=== PATIENT | male | born 1995 | race Native Hawaiian/Other Pacific Islander ===

== ENCOUNTER 2017-12-16 19:35 | Emergency (ER) | payer SELFPAY ==
[2017-12-16 19:36] VITALS: BP 133/99; PULSE 86; RESP 16; TEMP 36.9; O2SAT 99; BMI 31.3
--- NOTE | 2017-12-16 19:50 | ED.VISSUMM ---
- ER Visit Summary Date of Service: 12/16/17 Chief Complaint: painful rash left lower quadrant History of Present Illness: The patient is a 22 M who presents with painful red rash left lower quadrant near his pants/waistline. He denies fever, chills night sweats. He denies history of rheumatic fever, murmur, SBE, IV drug use to be immune suppressed. He denies any trauma. He denies prior history of cellulitis. He is not from this area. States he was driving through and saw there was a sign posted for hospital. Please read written note for complete detai. Physical Examination: Vital signs remarkable slight elevation blood pressure 133/99. He is not febrile. There is a 5 x 3 cm rash left lower quadrant is consistent with cellulitis. The rash is erythematous, warmth, indurated with no fluctuance lymphangitis or inguinal lymphadenopathy. Heart is regular without murmur, gallop or rub. S1 and S2 are normal. Lungs are clear to auscultation with good movement of air bilaterally. Test Results: None Emergency Department Course and Treatment: She patient states he has no insurance. He was prescribed cephalexin and trimethoprim sulfa double strength and prescription for both. Treatment Plan: Follow-up with in his area in 2 days for wound check. Disposition: Discharged home with appropriate home-going instructions Impression: Cellulitis left lower quadrant abdominal wall This note was generated with [employer] dictation software. It may contain incorrect words, spelling, and punctuation that were not noted in review of the chart prior to signing ED Disposition - Plan for ED Patient: Disposition: Home or Assisted Living Chief Complaint: Abscess Instructions: ED Infec Skin Cellulitis Prescriptions: Cephalexin [Keflex] 500 mg PO Q6 #30 cap Smz/Tmp Ds [Bactrim Ds] 1 tab PO BID #14 tab Referrals: Care Physician,No Primary [Primary Care Provider] - Doctor,Your [STAFF PHYSICIAN] - 2 Days for wound check
--- NOTE | 2017-12-16 19:55 | ED.DCSUM_ITS ---
- ER Visit Summary Date of Service: 12/16/17 Chief Complaint: painful rash left lower quadrant History of Present Illness: The patient is a 22 M who presents with painful red rash left lower quadrant near his pants/waistline. He denies fever, chills night sweats. He denies history of rheumatic fever, murmur, SBE, IV drug use to be immune suppressed. He denies any trauma. He denies prior history of cellulitis. He is not from this area. States he was driving through and saw there was a sign posted for hospital. Please read written note for complete detai. Physical Examination: Vital signs remarkable slight elevation blood pressure 133 /99. He is not febrile. There is a 5 x 3 cm rash left lower quadrant is consistent with cellulitis. The rash is erythematous, warmth, indurated with no fluctuance lymphangitis or inguinal lymphadenopathy. Heart is regular without murmur, gallop or rub. S1 and S2 are normal. Lungs are clear to auscultation with good movement of air bilaterally. Test Results: None Emergency Department Course and Treatment: She patient states he has no insurance. He was prescribed cephalexin and trimethoprim sulfa double strength and prescription for both. Treatment Plan: Follow-up with in his area in 2 days for wound check. Disposition: Discharged home with appropriate home-going instructions Impression: Cellulitis left lower quadrant abdominal wall This note was generated with [employer] dictation software. It may contain incorrect words, spelling, and punctuation that were not noted in review of the chart prior to signing ED Disposition - Plan for ED Patient: Disposition: Home or Assisted Living Chief Complaint: Abscess Instructions: ED Infec Skin Cellulitis Prescriptions: Cephalexin [Keflex] 500 mg PO Q6 #30 cap Smz/Tmp Ds [Bactrim Ds] 1 tab PO BID #14 tab Referrals: Care Physician,No Primary [Primary Care Provider] - Doctor,Your [STAFF PHYSICIAN] - 2 Days for wound check
[2017-12-16] MEDS: Cephalexin 250 MG Capsule 500 MG PO (20:02)
[2017-12-16] MEDS: Smz/Tmp Ds Tablet 1 TABLET PO (20:02)
[2017-12-16 20:04] VITALS: PULSE 83; RESP 16; O2SAT 98
== END 2017-12-16 20:04 | disposition home or self-care (01) ==
PROVIDERS: Emergency Provider Emergency Medicine
DX: L03.311 Cellulitis of abdominal wall (principal)
CPT/HCPCS: 99283